=== PATIENT | male | born 1940 | race Caucasian/White ===

== ENCOUNTER 2018-01-25 17:38 | Emergency (ER) | payer MEDICARE, SELFPAY ==
[2018-01-25 17:43] VITALS: BP 147/68; PULSE 82; RESP 14; TEMP 36.8; O2SAT 100
[2018-01-25] MEDS: TET,DIPH,PERTUSS(ACELL),VAC/PF 0.5 ML SYRINGE IM (19:39)
--- NOTE | 2018-01-25 19:42 | ED.WOUNDLAC ---
HPI - Wound/Laceration General Chief Complaint: Wound/Laceration Stated Complaint: DOG BITE LEFT HAND AND RIGHT INDEX FINGER Time Seen by Provider: 01/25/18 19:42 Source: patient Mode of arrival: ambulatory Limitations: no limitations History of Present Illness HPI narrative: The patient was bit by his 's talk as he was removing the dog from a kennel about 11:00 a.m. He sustained puncture wounds to the left thenar eminence, and dorsal hand. There was no other injury to the right index finger. He has cleaned and dressed the wounds. He is having little pain, no edema or erythema. He has no fever. He has normal range of motion and all the involved digits. He is right-hand dominant, his tetanus is up-to-date. Related Data Previous Rx's Medication Instructions Recorded amoxicillin-pot clavulanate 1 tab PO BID #14 tab 01/25/18 [Augmentin] Allergies Allergy/AdvReac Type Severity Reaction Status Date / Time aspirin Allergy Verified 01/25/18 17:47 Review of Systems Constitutional Denies fever(s) and Denies weakness Musculoskeletal Denies numbness and Reports other ( Bilateral hand injuries as described in HPI.) Integumentary/Breasts Reports other ( Bites to both hands as described in HPI.) Neurologic Denies numbness and Denies weakness [facility] Social History Smoking Status: Never smoker Exam Initial Vital Signs Initial Vital Signs: Vital Signs Temperature 98.2 F 01/25/18 17:43 Pulse Rate 82 01/25/18 17:43 Respiratory Rate 14 01/25/18 17:43 Blood Pressure 147/68 H 01/25/18 17:43 Pulse Oximetry 100 01/25/18 17:43 Skin Lesions: other ( See extremity exam.) Rashes: no rashes Neuro General: alert, oriented x3 and no focal motor deficits Sensory Exam: no sensory deficits noted Extrem General: other ( Puncture wounds from dog bites on the left dorsal hand adjacent to the 1st MCP, and the left thenar eminence. Normal range of motion to the adjacent joints. No erythema, redness or discharge. Small puncture wound to the right distal index finger. tendon exam is intact on both hands. All finger) Course Orders Ordered: Discontinued Medications Amoxicillin/Clavulanate Potassium (Augmentin 875-125 Mg) 1 tab PO NOW ONE Stop: 01/25/18 19:51 Last Admin: 01/25/18 20:07 Dose: 1 tab Diphtheria/Tetanus/Acell Pertussis (Adacel) 0.5 ml IM .ONCE ONE Stop: 01/25/18 18:16 Last Admin: 01/25/18 19:39 Dose: 0.5 ml Vital Signs - 8 hr 01/25/18 17:43 Temperature 98.2 F Pulse Rate 82 Respiratory Rate 14 Blood Pressure 147/68 H Pulse Oximetry 100 Discharge Plan Departure Patient Disposition: Home, Self-Care Clinical Impression: Dog bite of left hand, Dog bite of finger Instructions: DI for Animal Bites Activity Restrictions/Additional Instructions: Augmentin 2 times daily for 1 week. I would recommend soaking the wound in warm water with Epsom salts twice daily for the next 2 days. Return here for swelling, redness or warmth To the wound sites. Prescriptions: New amoxicillin-pot clavulanate [Augmentin] 875-125 mg tablet 1 tab PO BID Qty: 14 RF: 0
[2018-01-25] MEDS: AMOXICILLIN/CLAV 875/125 MG 1 TAB PO (20:07)
[2018-01-25 20:16] VITALS: BP 135/64; PULSE 73; RESP 20; O2SAT 95
== END 2018-01-25 20:18 | disposition home or self-care (01) ==
PROVIDERS: Emergency Provider Emergency Medicine
DX: S61.432A Puncture wound without foreign body of left hand, initial encounter (principal); S61.230A Puncture wound without foreign body of right index finger without damage to nail, initial encounter; W54.0XXA Bitten by dog, initial encounter
CPT/HCPCS: 90471; 99283; 90715